=== PATIENT | male | born 1965 | race Caucasian/White ===

== ENCOUNTER 2021-06-06 06:43 | Day surgery (SDC) | payer MEDICAID ==
[2021-06-03 14:26] LABS: BASOPHILS # (AUTO) 0.1 X10'3 (0-0.2); EOSINOPHILS # (AUTO) 0.1 X10'3 (0-0.9); EOSINOPHILS % (AUTO) 0.7 % (0-6); LYMPHOCYTES # (AUTO) 1.9 X10'3 (1.1-4.8); LYMPHOCYTES % (AUTO) 25.5 % (21-51); MEAN CORPUSCULAR HEMOGLOBIN 31.4 PG (27.0-31.0); MEAN CORPUSCULAR VOLUME 92.3 FL (78-98); MEAN PLATELET VOLUME 8.7 FL (7.4-10.4); MONOCYTES # (AUTO) 0.6 X10'3 (0-0.9); MONOCYTES % (AUTO) 7.4 % (2-12); NEUTROPHILS % (AUTO) 65.4 % (42-75); PRE OP HEMOGLOBIN 14.3 g/dL (14.0-17.9); PRE OP PLATELET COUNT 231 X10'3 (140-440); RED BLOOD COUNT 4.55 X10'6 (4.70-6.10); RED CELL DISTRIBUTION WIDTH 13.2 % (11.5-14.5)
[2021-06-03 14:42] LABS: ALBUMIN/GLOBULIN RATIO 1.1 (1.1-1.5); ALKALINE PHOSPHATASE 57 IU/L (46-116); BLOOD UREA NITROGEN 8 MG/DL (7-18); BUN/CREATININE RATIO 8.6 (5.4-32.0); CHLORIDE 101 MMOL/L (99-107); CREATININE 0.93 MG/DL (0.60-1.10); PRE OP ALT 57 U/L (30-65); PRE OP ANION GAP 12 (8-16); PRE OP AST 53 U/L (10-37); PRE OP BILIRUB, TOTAL 0.6 MG/DL (0.0-1.0); PRE OP GLUCOSE 73 MG/DL (70-104); PRE OP POTASSIUM 4.3 MMOL/L (3.4-5.1); PRE OP SODIUM 139 MMOL/L (135-145); TOTAL CARBON DIOXIDE 26.4 MMOL/L (24-32); TOTAL PROTEIN 7.5 G/DL (6.4-8.2); eGFR 83 ML/MIN
[~2021-06-06] VITALS: Ht 175.3 cm; Wt 62.4 kg
[~2021-06-06 06:43] MED LIST: ALBU8.5H17 INH; FLO0.4C PO; LISI20TA28 PO; LORA10TA7 PO; cefazolin/dext.iso 2gm/50ml IV ONE; famotidine 20mg tablet PO ONE; ringers solution, lacted 1,000 ML IV SCH
[2021-06-06 07:20] VITALS: BP 147/97
[2021-06-06] MEDS ORDERED: BUPIVAcaine/PF 2.5mg/ml (0.25%) 10ml vial ONE (08:37)
[2021-06-06] MEDS ORDERED: LIDOcaine 0.5% (5mg/ml) 50ml vial ONE ×2 (08:44→10:15)
[2021-06-06] MEDS ORDERED: meperidine/PF 25mg/ml syringe IV PRN ×3 (09:30)
[2021-06-06] MEDS ORDERED: hydrALAZINE 20mg/ml inj. IV PRN (09:30)
[2021-06-06] MEDS ORDERED: morphine 4 MG/ML inj SYRINge IV PRN (09:30)
[2021-06-06] MEDS ORDERED: ondansetron/PF 4mg/2ml inj IV PRN (09:30)
[2021-06-06] MEDS ORDERED: ringers solution, lacted 1,000 ML IV SCH (09:30)
[2021-06-06] MEDS ORDERED: morphine 2 MG/ML inj. syringe IV PRN (09:30)
[2021-06-06] MEDS ORDERED: labetalol 20mg/4ml (5mg/ml) syringe IV PRN (09:30)
[2021-06-06] MEDS ORDERED: proCHLORperazine 10 MG/2 ml inj IV PRN (09:30)
[2021-06-06] MEDS ORDERED: acetaminophen 1,000mg/100ml IV 100 ML IV PRN (09:30)
[2021-06-06] MEDS ORDERED: fentaNYL/PF 50MCG/1 ML 2ML syringe ONE (09:56)
[2021-06-06] MEDS ORDERED: midazolam 1 mg/ML 2ml injection ONE (09:57)
[2021-06-06 11:02] VITALS: BP 126/93
--- NOTE | 2021-06-06 11:02 | NUR ---
Received from OR via , accompanied by Anesthesiologist DR LOPEZ and report given by Anesthesiolgist. AWAKENS TO VOICE. VITALS STABLE. SPLINT DI. EMILEE PAIN. FINGERS WARM AND PINK.
[2021-06-06 11:12] VITALS: BP 130/91
[2021-06-06 11:22] VITALS: BP 149/93
[2021-06-06 11:32] VITALS: BP 140/97
--- NOTE | 2021-06-06 11:42 | NUR ---
AWAKE AND ORIENTED. VITALS STABLE. DRESSING DI. EMILEE PAIN. HOME WITH FAMILY AT THIS TIME.
== END 2021-06-06 11:42 | disposition home or self-care (01) ==
LOC: PAS 06:43
PROVIDERS: ATTEND Orthopaedic Surgery Hand Surgery
DX: M72.0 Palmar fascial fibromatosis [Dupuytren] (principal); J44.9 Chronic obstructive pulmonary disease, unspecified; G47.00 Insomnia, unspecified; M19.90 Unspecified osteoarthritis, unspecified site; I10 Essential (primary) hypertension; I25.2 Old myocardial infarction; G47.33 Obstructive sleep apnea (adult) (pediatric); Z72.89 Other problems related to lifestyle; F17.210 Nicotine dependence, cigarettes, uncomplicated; Z20.822 Contact with and (suspected) exposure to COVID-19; Z79.899 Other long term (current) drug therapy; Z98.890 Other specified postprocedural states
CPT/HCPCS: 26123; 26125; 36415; 80053; 82948; 85025; 93005; A6222; J2001; J2250; J3010; J3490; J7120; U0003; U0005; Z7506; Z7508; Z7512; A4215; A4618; A6449; A7000